=== PATIENT | female | born 1950 | race Caucasian/White ===

== ENCOUNTER 2024-11-01 08:09 | Emergency (ER) | payer MEDICARE, SELFPAY ==
[2024-11-01] MEDS ORDERED: Prochlorperazine 10 MG/2 ML VIAL ONE (08:57)
[2024-11-01] MEDS ORDERED: Lactated Ringer's 1,000 ML ONE (08:57)
[2024-11-01 09:10] LABS: Hematocrit 27.4 % (36.0-47.0); Hemoglobin 8.7 g/dL (12.0-16.0); Mean Corpuscular HGB CONC 31.8 g/dL (32.0-36.0); Mean Corpuscular Hemoglobin 26.2 pg (27.0-31.0); Mean Corpuscular Volume 82.4 fl (78.0-98.0); Mean Platelet Volume 7.8 fL (7.4-10.4); Platelet Count 297 10x3/uL (130-400); RBC Distribution Width 13.6 % (11.5-14.5); Red Blood Cell (RBC) Count 3.33 mill/uL (4.20-5.40); White Blood Cell (WBC) Count 6.7 10x3/uL (4.8-10.8)
[2024-11-01 09:17] LABS: Band 1 % (5-11); Lymphocytes 13 % (21-51); MDiff Complete? YES; Manual Diff?? YES; Monocytes 9 % (0-10); Neutrophil 60 % (42-75); Reactive Lymphocytes 17 % (0-10)
[2024-11-01 09:19] LABS: Troponin I 0.048 ng/mL (< 0.028)
[2024-11-01 09:20] LABS: ALT (SGPT) 13 U/L (8-55); AST (SGOT) 16 U/L (5-34); Albumin 2.4 g/dL (3.4-4.8); Alkaline Phosphatase 95 U/L (40-110); Anion Gap 17 mmol/L (10-20); BUN (Urea Nitrogen) 10 mg/dL (9.8-20.1); Bilirubin, Total 0.6 mg/dL (0.2-1.2); CK (CPK) 104 U/L (29-168); Calc. Creatinine Clearance 0 mL/min (70-130); Calcium 7.2 mg/dL (7.8-10.44); Carbon Dioxide 22 mmol/L (23-31); Chloride 98 mmol/L (98-107); Estimated GFR 51; Globulin 3.8 g/dL (2.4-3.5); Glucose 105 mg/dL (83-110); Hypochromia MODERATE=16-30 cells (100X) (0-5/hpf); Lipase 16 U/L (8-78); Platelet Adequacy Comment Appears Adequate; Polychromasia SLIGHT = 2-3 cells (100X) (0-2/hpf); Potassium 3.1 mmol/L (3.5-5.1); Protein, Total 6.2 g/dL (5.8-8.1); Sodium 134 mmol/L (136-145)
[2024-11-01 09:22] LABS: Magnesium Less than 0.6 mg/dL (1.6-2.6)
[2024-11-01] MEDS ORDERED: Magnesium 2 GM/50 ML BAG (IN WATER) ONE ×2 (09:23→11:31)
[2024-11-01] MEDS ORDERED: NS 0.9% w/ 20 MEQ KCL 2,000 ML ONE (09:49)
[2024-11-01 09:52] LABS: Bilirubin Negative (Negative); Blood, Urine Trace (Negative); Clarity Clear (Clear); Glucose, Urine (Dipstick) Negative (Negative); Ketone, Urine Negative (Negative); Leukocyte Negative (Negative); Nitrite Negative (Negative); Protein, Urine (Dipstick) 30 mg/dL (Neg-Trace); Specific Gravity, Urine 1.015 (1.005-1.030); Urobilinogen 0.2 mg/dL (Less than 2)
[2024-11-01 09:58] LABS: Bacteria/HPF Rare-Few HPF (None Seen); CAUTI Indications for Culture Dysuria,urgency,freq; Mucous/LPF Few LPF (<2+); RBC/HPF 0-3 HPF (0-3)
[2024-11-01 09:59] LABS: Urine Culture Reflex No No
[2024-11-01] MEDS ORDERED: Sodium Chloride 0.9% 100 ML ONE (10:04)
[2024-11-01] MEDS ORDERED: Calcium Gluc 4.6 MEQ/10 ML (100 MG/ML) ONE ×2 (10:04→10:13)
[2024-11-01] MEDS ORDERED: Aspirin Chewable 81 MG TAB ONE (11:00)
[2024-11-01 12:19] LABS: Troponin I 0.027 ng/mL (< 0.028)
[2024-11-01] MEDS ORDERED: NS 0.9% w/ 20 MEQ KCL 1,000 ML ONE (15:07)
[2024-11-01 15:22] LABS: Troponin I 0.041 ng/mL (< 0.028)
== END 2024-11-01 16:37 | disposition short-term general hospital (02) ==
LOC: MADERS 08:09
DX: E83.42 Hypomagnesemia (principal); E83.51 Hypocalcemia; E87.6 Hypokalemia; R79.89 Other specified abnormal findings of blood chemistry; K65.4 Sclerosing mesenteritis; K91.89 Other postprocedural complications and disorders of digestive system
CPT/HCPCS: 71046; 74177; 80053; 81001; 82550; 83605; 83690; 83735; 84484; 85025; 87428; 93005; 94760; 96361; 96365; 96366; 96367; 96368; 96375; J0612; J0780; J3475; J3480; J7120